=== PATIENT | female | born 1985 | race Caucasian/White ===

== ENCOUNTER 2019-03-28 13:44 | Observation (INO) | payer MEDICAID, SELFPAY ==
[2019-03-28 13:46] VITALS: BP 137/92; PULSE 98; RESP 16; TEMP 36; O2SAT 100; BMI 27.3
[2019-03-28] MEDS: proMETHazine 25 MG Tablet PO (14:33)
[2019-03-28] MEDS: cloNIDine HCl 0.2 MG Tablet PO (14:42)
[2019-03-28 14:43] LABS: Absolute Neutrophil Count 5.9 X10^3/uL (2.0-7.7); Basophil# 0.05 X10^3/uL; Basophil% 0.6 % (0-1); Eosinophil# 0.03 X10^3/uL; Eosinophils% 0.4 % (0-5); Hematocrit 48.9 % (37-47); Hemoglobin 16.2 g/dL (12.0-15.0); Lymphocyte % 24.3 % (19-41); Mean Corp Hgb Conc 33.1 g/dL (32-36); Mean Corpuscular Hgb 29.7 pg (27.0-32.0); Mean Corpuscular Volume 89.7 fL (81-99); Monocyte# 0.27 X10^3/uL; Monocyte% 3.3 % (0-10); NRBC Flagged by Analyzer 0 % (0-5); Neutrophil # 5.86 X10^3/uL (2.7-7.7); Neutrophil % 71.2 % (47-70); Platelet Count 299 K/mm3 (150-450); RBC Distribution Width SD 42.1 fl (35.1-43.9); Red Blood Count 5.45 M/mm3 (4.2-5.4); White Blood Count 8.2 K/mm3 (4.4-11.0)
[2019-03-28 14:52] LABS: Internal QC Validated? YES +Cl - CLEAR BKGD; Pregnancy, Serum, hCG Quali. NEGATIVE Negative
--- NOTE | 2019-03-28 14:53 | CM.ED ---
SOCIAL WORK INFORMANT: DR. MONTEJO REASON FOR REFERRAL: SUBSTANCE ABUSE MET WITH PATIENT AND PATIENT'S MOTHER IN ROOM. PATIENT GAVE PERMISSION FOR THIS WORKER TO SPEAK OPENLY WITH MOTHER PRESENT. INTRODUCED ROLE AND REASON FOR REFERRAL. PATIENT STATES RECENTLY MOVED HERE FROM [place]. PATIENT STATES IS HOMELESS MOTHER REFUSED TO ALLOW PATIENT TO LIVE WITH HER D/T SUBSTANCE ABUSE. PATIENT STATES LAST USE OF HEROIN WAS ABOUT 7-8 DAYS AGO. PATIENT STATES HAS BEEN OBTAINING GABAPENTIN AND SUBOXONE TO ASSIST WITH WITHDRAWAL. PATIENT HOPING TO BE ADMITTED FOR DETOX. PATIENT IS SELF PAY. DISCUSSED MEDICAID AND PATIENT STATES WAS ON MEDICAID BEFORE IN [place] AND IT WAS TRANSFERRED TO [place]. PATIENT PROVIDED WITH [place] BENEFITS CONTACT NUMBER TO REINSTATE MEDICAID. DISCUSSED COMMUNITY RESOURCES AND PATIENT WANTING REFERRAL TO [facility]. DISCUSSED PATIENT'S NEED TO COMPLETE INTAKE. INFORMED PATIENT THIS WORKER WILL CALL [facility] AND DISCUSS REFERRAL. DISCUSSED WITH DR. MONTEJO. HOSPITALIST TO BE PAGED TO DISCUSS ADMISSION. PLAN: GISSELLE LOPEZ, SPEECH CORRECTION ASSISTANT, VEHICLE COST ENGINEER.
[2019-03-28 14:59] LABS: Alcohol, Blood (Medical)-Serum < 3.0 mg/dL
[2019-03-28 15:00] LABS: Amphetamine Urine VISTA NEGATIVE (<1000 ng/mL); Barbiturate Urine VISTA NEGATIVE (< 200 ng/mL); Benzodiazepine Urine VISTA NEGATIVE (< 200 ng/mL); Cocaine Urine VISTA NEGATIVE (< 300 ng/mL); Ecstacy Urine VISTA NEGATIVE (< 500 ng/mL); Methadone Urine VISTA NEGATIVE (< 300 ng/mL); PCP Urine VISTA NEGATIVE (< 25 ng/mL); THC Urine VISTA NEGATIVE (< 50 ng/mL); Vista UDS pH Range 7
[2019-03-28 15:00] LABS: AST(SGOT) 8 U/L (15-37); Alanine Aminotransfer ALT/SGPT 19 U/L (13-56); Alkaline Phosphatase 83 U/L (45-117); Anion Gap 3 (5-15); BUN 8 mg/dL (7-18); BUN/Creat Ratio 9.8 RATIO (10-20); Calcium,Total 9.4 mg/dL (8.5-10.1); Chloride 109 mmol/L (98-107); Creatinine, Serum 0.82 mg/dL (0.55-1.02); EST Glomerular Filtration Rate 85 mL/min (>60); Est Glom Filt Rate - Afr Amer 103 mL/min (>60); Estimated Creatinine Clearance 72.26 ml/min; Globulin 4.2 g/dL (2.2-4.2); Glucose 96 mg/dL (74-106); Potassium 3.9 mmol/L (3.5-5.1); Protein, Total 8.2 g/dL (6.4-8.2); Sodium Level 141 mmol/L (136-145)
--- NOTE | 2019-03-28 15:11 | NURSING ---
MED SURG SUSANNA OPIATE WITHDRAWAL
--- NOTE | 2019-03-28 15:14 | ED.DCSUM_ITS ---
History of Present Illness Chief Complaint: Substance Abuse Narrative: Patient presenting requesting opiate detox. Patient reports that she is a frequent heroin user, was using upwards of $5000 worth of heroin per month. Patient was on a methadone program in [place] about 3 weeks ago that she failed. Patient states that in an attempt to get away from the people that she was using with as well as the places she knew where she could get heroin she flew to [place]. She does have family in [place], but she reports that her mom is not allowing her to stay with her. Patient states that her last opiate use was about 7 days ago, she has been intermittently using other things such as gabapentin or benzodiazepines, last use was 3 days ago but she is continuing to have withdrawal symptoms. Patient reports that she had a abscess on her right forearm that she drained herself that is still somewhat painful she denies constitutional symptoms such as fever. Review of systems otherwise negative. Past Medical History - Allergies and Home Meds Allergies/Adverse Reactions: Allergies No Known Allergies Allergy (Verified 03/28/19 13:46) Primary Care Physician: Care Physician,No Primary [Primary Care Provider] - Past Medical History: - - Heroin use Smoking Status: Current every day smoker Review of Systems General: Reports: Chills Eyes: Denies: Visual changes - bilaterally, Diplopia ENT: Denies: Rhinorrhea, Sore throat Cardiovascular: Denies: Chest pain, Palpitations Respiratory: Denies: Dyspnea, Cough, Dyspnea on exertion Gastrointestinal: Reports: Nausea Genitourinary: Denies: Dysuria, Hematuria, Frequency Musculoskeletal: Denies: Back pain, Extremity Pain Skin: Reports: Abscess Neurological: Denies: Headache, Weakness, Numbness Physical Exam Vital Signs/Narrative: Vital Signs Temp Pulse Resp BP Pulse Ox 03/28/19 13:46 96.8 F L 98 16 137/92 H 100 Inital Vital Signs reviewed: Yes General: Well nourished, Well developed Head: Normocephalic, Atraumatic Eyes: Perrl, EOMI ENT: Moist mucous membranes, No rhinorrhea Neck: Supple, Nontender Cardiovascular: Regular rate, Regular rhythm, No murmurs Respiratory: No distress, CTA bilaterally, Chest nontender Abdomen: Soft, Nontender, Nondistended, Normal bowel sounds Back: Nontender, Normal Inspection Extremities: Nontender, No Edema Skin: Normal color, - - Piloerection in the skin. Patient has a healing abscess on the right volar surface of her forearm. Neurological: Alert, Oriented x3, Cranial nerves II-XII grossly intact, Normal Strength, Normal Sensation Psych: Normal Speech Pattern Diagnostic/Tx/Re-eval Patient presented secondary to opiate withdrawal. Screening labs are negative. Patient's abscess on her forearm appears to be well-healing I do not feel that further intervention is indicated. Patient will be admitted for detox. ED Disposition - Plan for ED Patient: Disposition: Home or Assisted Living Diagnosis: Opiate dependence
--- NOTE | 2019-03-28 15:24 | PCM.HP.STD ---
Problem List (1) Benzodiazepine withdrawal with delirium Status: Acute (2) Opioid withdrawal delirium, acute, hyperactive Status: Acute (3) Nicotine dependence Status: Acute History of Present Illness Date of Admission: 03/28/19 Chief Complaint: Opioid and benzodiazepine withdrawal syndrome including tremors The patient is a 33 year old F with history of chronic opioid use and dependence, benzodiazepine dependence was on methadone program in [place]. Patient flew from [place] a week ago. She was on 120 mg methadone daily about 3 weeks ago. She started using heroin 2 and half gram after that, last use was about 7 days ago. She also uses gabapentin 600 mg, 5 tablet every 6 hours for last 4 days. Takes Xanax more than 12 mg, last use was about 3 days ago. Smokes cigarettes 1 pack/day started in teenage. History of seizure related to benzodiazepine withdrawal about 6 months ago. She claims it was partial seizure. Denies drinking alcohol. Patient is having tremors, nausea, vomiting, abdominal cramps and diarrhea. She is also having goosebumps, restlessness and anxiety. She denies history of suicidal attempt or ideation but has history of depression. Past Medical History Allergies No Known Allergies Allergy (Verified 03/28/19 13:46) Home Medications: Ambulatory Orders Medication Instructions Recorded Buprenorphine HCl/Naloxone HCl 1 ea SL DAILY 03/28/19 [Suboxone 12 mg-3 mg Sl Film] Smoking Status: Current every day smoker - 1 pack/day - *Family History Paternal History Items: No pertinent history Review of Systems Constitutional: Reports: Chills, Malaise, Weakness, Fatigue HEENT: Denies: Head Aches, Sinus Congestion, Sinus Drainage Cardiovascular: Denies: Chest Pain, Palpitations Respiratory: Denies: Cough, Shortness of breath at rest, Sputum production Gastrointestinal: Denies: Abdominal Pain, Nausea, Vomiting Genitourinary: Denies: Dysuria Musculoskeletal: Reports: Joint Pain, Leg Pain, Muscle pain, Neck Pain. Denies: Joint Tenderness Skin: Denies: Rash, Wounds Neurological: Reports: Confusion, Tremor. Denies: Focal weakness, Numbness, Tingling Psychiatric: Reports: Anxiety, Depression. Denies: Homicidal Ideations, Suicidal Ideations Hematologic/ Lymphatic: Denies: Easy Bruising, Easy Bleeding VTE Information - Inpt Only VTE Present on Admission: No VTE Mechan Device Prophylaxis: None VTE Pharm Prophylaxis ordered?: Yes Patient Problems: Active and Suspected Problems Opiate dependence (Acute) Benzodiazepine withdrawal with delirium (Acute) Opioid withdrawal delirium, acute, hyperactive (Acute) Nicotine dependence (Acute) - Physical Exam Vitals/I&O's: Vital Signs Temp Pulse Resp BP Pulse Ox 96.8 F L 98 16 137/92 H 100 03/28/19 13:46 03/28/19 13:46 03/28/19 13:46 03/28/19 13:46 03/28/19 13:46 Oxygen Delivery Method Room Air Weight: 145 lb Body Mass Index (BMI) 27.3 General: Alert, Oriented x3, Cooperative HEENT: Atraumatic, PERRLA, EOMI, Normocephalic Oral: Dry Mucosa Neck: Supple, No JVD, Negative Carotid Bruits Lungs: Clear to auscultation, Normal air movement, No rhonchi, No wheeze, No rales Cardiovascular: Regular rate, Regular Rhythm, Normal S1, Normal S2, No murmurs Abdomen: Bowel Sounds Present, Soft, Non Tender, Non-Distended Extremities: No edema, Capillary Refill Less than 3 Seconds Skin: No rashes, No breakdown, - - Needle babin on the upper arms, forearms and hands Musculoskeletal: No Tenderness to Palpation of Joints or Extremities Neurological: Cranial nerves II-XII grossly intact, Deep Tendon Reflexes 2+/4 and Symmetrical, Neuro grossly intact, Unsteady Gait, - - Tremors Psych/Mental Status: Anxious Laboratory Results 03/28/19 14:35: WBC 8.2, RBC 5.45 H, Hgb 16.2 H, Hct 48.9 H, MCV 89.7, MCH 29.7, MCHC 33.1, RDW Std Deviation 42.1, RDW Coeff of Chad 13.0, Plt Count 299, MPV 9.0, Immature Gran % (Auto) 0.200, Neut % (Auto) 71.2 H, Lymph % (Auto) 24.3, [place] % (Auto) 3.3, Eos % (Auto) 0.4, Baso % (Auto) 0.6, Absolute Neuts (auto) 5.9, Absolute Lymphs (auto) 2.00, Nucleated RBC % 0 03/28/19 14:35: Sodium 141, Potassium 3.9, Chloride 109 H, Carbon Dioxide 29.0, Anion Gap 3 L, BUN 8, Creatinine 0.82, Estim Creat Clear Calc 72.26, Est GFR (MDRD) Af Amer 103, Est GFR (MDRD) Non-Af 85, BUN/Creatinine Ratio 9.8 L, Glucose 96, Calcium 9.4, Total Bilirubin 0.30, AST 8 L, ALT 19, Alkaline Phosphatase 83, Total Protein 8.2, Albumin 4.0, Globulin 4.2, Albumin/Globulin Ratio 1.0 03/28/19 14:35: Ethyl Alcohol < 3.0 03/28/19 14:35: Serum , Qual NEGATIVE 03/28/19 14:45: Urine Opiates Screen NEGATIVE, Urine Methadone Screen NEGATIVE, Ur Barbiturates Screen NEGATIVE, Ur Phencyclidine Scrn NEGATIVE, Ur Amphetamines Screen NEGATIVE, U Methamphetamin-MDMA NEGATIVE, U Benzodiazepines Scrn NEGATIVE, Urine Cocaine Screen NEGATIVE, U Cannabinoids Screen NEGATIVE, Ur Drug Screen Comment Assessment/Plan All Active Problems Opiate dependence (Acute) Benzodiazepine withdrawal with delirium (Acute) Opioid withdrawal delirium, acute, hyperactive (Acute) Nicotine dependence (Acute) This 33-year-old female with history of chronic opioid and benzodiazepine use and dependence on methadone is being admitted for opioid and benzodiazepine withdrawal syndrome for medical stabilization. 1. Acute opioid withdrawal with history of benzodiazepine dependence: Patient is being admitted in MedSurg floor. Started on Librium scheduled and taper dose and buprenorphine. Patient is also on supportive medications including Tylenol, Motrin, methocarbamol, clonidine, folic acid and dicyclomine. 2. Acute benzodiazepine withdrawal: Patient is on Neurontin to control symptoms. Patient has history of benzodiazepine related seizure about 6 months ago. On Ativan 1 mg every 4 hourly as needed for seizure 3. Nicotine use and dependence: Patient history of cigarette smoking. On nicotine patch. 4. Anxiety, depression: Patient denies history of suicidal ideation or attempt. Bilateral SCDs. Code Visit Inpatient E&M: 10522 Init Hosp L3
--- NOTE | 2019-03-28 15:25 | CM.ED ---
SOCIAL WORK MET WITH PATIENT IN ROOM. HOSPITALIST JUST FINISHED WITH PATIENT. PLAN FOR ADMISSION. PATIENT RECEIVING MEDICAID NUMBER FROM [employer] WORKER UPON ENTERING ROOM. NUMBER GIVEN TO ED REGISTRATION. CALL TO [facility]. MESSAGE LEFT FOR MIKE REGARDING REFERRAL. AWAITING CALL BACK AT THIS TIME. PLAN: ADMIT Loree LOPEZ MSW, COMMERCIAL LOAN UNDERWRITER.
[2019-03-28 16:23] VITALS: BMI 25.6
[2019-03-28 16:27] LABS: Lipase 174 U/L (73-393)
[2019-03-28 16:54] LABS: Prothrombin Time (Protime)PT. 12.8 SECONDS (11.7-14.9)
[2019-03-28 16:55] VITALS: BP 102/71; PULSE 71; RESP 16; TEMP 35.8; O2SAT 98
[2019-03-28] MEDS: Thiamine Hydrochloride 100 MG Tablet PO (17:01)
[2019-03-28] MEDS: Methocarbamol 750 MG Tablet PO ×2 (17:01→23:41)
[2019-03-28] MEDS: Dicyclomine 10 MG Capsule 20 MG PO (17:01)
[2019-03-28] MEDS: cloNIDine HCl 0.1 MG Tablet PO ×2 (17:01→22:06)
[2019-03-28] MEDS: chlordiazePOXIDE 25 MG Capsule PO ×2 (17:02→22:09)
[2019-03-28] MEDS: Buprenorphine HCl 2 MG TAB.SUBL SL (17:07)
[2019-03-28 17:15] LABS: Bacteria 0 SEEN /hpf (None Seen); Mucous, Urine 0 SEEN /hpf (<or=2+); Red Blood Cells-Urine 0 SEEN /hpf (0-5)
[2019-03-28 17:37] LABS: Color, Urine Yellow (Yellow); Glucose, Dipstick Normal (Normal); Ketone-Dipstick Negative (Negative); Leukocyte Esterase-Dipstick 100 /ul (Negative); Nitrite-Dipstick Negative (Negative); Occult Blood-Urine Negative /ul (Negative); Protein-Dipstick Negative (Negative); Urine Bilirubin Dipstick Negative (Negative); Urine Clarity Clear (Clear); Urine Urobilinogen Normal (Normal)
[2019-03-28 17:56] LABS: Squamous Epithelial Cells - UA 0-5 SEEN /hpf (5-10); White Blood Cells 5-10 SEEN /hpf (0-5)
[2019-03-28] MEDS: hydrOXYzine PAM 25 MG Capsule 50 MG PO (22:06)
[2019-03-28] MEDS: traZODone 50 MG Tablet PO (22:06)
[2019-03-28] MEDS: Gabapentin 300 MG Capsule PO (22:08)
[2019-03-28 23:14] VITALS: BP 92/60; PULSE 81; RESP 18; TEMP 36.4; O2SAT 99
[2019-03-29] MEDS: Buprenorphine HCl 2 MG TAB.SUBL SL ×3 (01:08→18:15)
[2019-03-29] MEDS: cloNIDine HCl 0.1 MG Tablet PO (01:08)
[2019-03-29 05:14] VITALS: BP 83/57; PULSE 70; RESP 18; TEMP 36.1; O2SAT 100
[2019-03-29] MEDS: LORazepam 1 MG Tablet PO ×3 (05:37→20:45)
[2019-03-29] MEDS: Gabapentin 300 MG Capsule PO ×3 (05:37→21:38)
[2019-03-29] MEDS: chlordiazePOXIDE 25 MG Capsule PO ×3 (05:37→18:15)
--- NOTE | 2019-03-29 08:02 | PCM.PN.HOSP ---
Patient Problems: Active and Suspected Problems Opiate dependence (Acute) Benzodiazepine withdrawal with delirium (Acute) Opioid withdrawal delirium, acute, hyperactive (Acute) Nicotine dependence (Acute) Reason for Visit: Follow-up acute opioid and benzo withdrawal Subjective: Patient is a 33-year-old lady with history of chronic opiate and benzo use admitted with acute opioid withdrawal Objective: GENERAL: cooperative HEENT: Atraumatic; EYES; Anicteric, Normal Conjunctiva NECK; supple, normal thyroid, RESPIRATORY: Diminished to auscultation CARDIOVASCULAR: Regular S1 S2, GI: soft, normoactive bowel sounds, : No Renal angle tenderness; EXTREMITIES: No edema, no clubbing, MUSCULOSKELETAL: no muscle waisting NEURO: Awake; no lateralizing signs. SKIN: Area of induration measuring 1.5 cm on the right forearm PSYCH; Flat affect Vitals/I&O's: Vital Signs Temp Pulse Resp BP Pulse Ox 97.0 F L 70 18 83/57 L 100 03/29/19 05:14 03/29/19 05:14 03/29/19 05:14 03/29/19 05:14 03/29/19 05:14 Oxygen Delivery Method Room Air Weight: 61.5 kg Body Mass Index (BMI) 25.6 Intake and Output for Last 24 Hours 03/27/19 03/28/19 03/29/19 23:59 23:59 23:59 Intake Total 1899 Balance 1899 Laboratory Results 03/28/19 14:35: WBC 8.2, RBC 5.45 H, Hgb 16.2 H, Hct 48.9 H, MCV 89.7, MCH 29.7, MCHC 33.1, RDW Std Deviation 42.1, RDW Coeff of Chad 13.0, Plt Count 299, MPV 9.0, Immature Gran % (Auto) 0.200, Neut % (Auto) 71.2 H, Lymph % (Auto) 24.3, [place] % (Auto) 3.3, Eos % (Auto) 0.4, Baso % (Auto) 0.6, Absolute Neuts (auto) 5.9, Absolute Lymphs (auto) 2.00, Nucleated RBC % 0 03/28/19 14:35: Sodium 141, Potassium 3.9, Chloride 109 H, Carbon Dioxide 29.0, Anion Gap 3 L, BUN 8, Creatinine 0.82, Estim Creat Clear Calc 72.26, Est GFR (MDRD) Af Amer 103, Est GFR (MDRD) Non-Af 85, BUN/Creatinine Ratio 9.8 L, Glucose 96, Calcium 9.4, Total Bilirubin 0.30, AST 8 L, ALT 19, Alkaline Phosphatase 83, Total Protein 8.2, Albumin 4.0, Globulin 4.2, Albumin/Globulin Ratio 1.0 03/28/19 14:35: Ethyl Alcohol < 3.0 03/28/19 14:35: Serum , Qual NEGATIVE 03/28/19 14:35: Lipase 174 03/28/19 14:45: Urine Opiates Screen NEGATIVE, Urine Methadone Screen NEGATIVE, Ur Barbiturates Screen NEGATIVE, Ur Phencyclidine Scrn NEGATIVE, Ur Amphetamines Screen NEGATIVE, U Methamphetamin-MDMA NEGATIVE, U Benzodiazepines Scrn NEGATIVE, Urine Cocaine Screen NEGATIVE, U Cannabinoids Screen NEGATIVE, Ur Drug Screen Comment 03/28/19 14:45: Urine Color Yellow, Urine Clarity Clear, Urine pH 7.0, Ur Specific [place] 1.010, Urine Protein Negative, Urine Glucose (UA) Normal, Urine Ketones Negative, Urine Occult Blood Negative, Urine Nitrite Negative, Urine Bilirubin Negative, Urine Urobilinogen Normal, Ur Leukocyte Esterase 100 H, Urine RBC 0 SEEN, Urine WBC 5-10 SEEN, Ur Squamous Epith Cells 0-5 SEEN, Urine Bacteria 0 SEEN, Urine Mucus 0 SEEN 03/28/19 16:36: PT 12.8, INR 1.0 Current Medications Acetaminophen (Tylenol) 500 mg PO Q4H PRN PRN PRN Reason: Temp > 100.4 F Al Hydroxide/Mg Hydroxide (Mylanta Ii) 30 ml PO Q6H PRN PRN PRN Reason: dyspesia Bisacodyl (Dulcolax) 10 mg RECTAL DAILY PRN PRN Reason: Constipation Buprenorphine HCl (Buprenorphine Hcl) 4 mg SL Q8H SANTOS; Taper Stop: 03/31/19 20:59 Last Admin: 03/29/19 01:08 Dose: 4 mg Documented by: Chlordiazepoxide (Librium) 50 mg PO Q6H SANTOS; Taper Stop: 03/31/19 18:59 Last Admin: 03/29/19 05:37 Dose: 50 mg Documented by: Clonidine (Catapres) 0.1 mg PO Q2H PRN PRN PRN Reason: hot/cold sweats / gen. anxiety Last Admin: 03/29/19 01:08 Dose: 0.1 mg Documented by: Dicyclomine HCl (Bentyl) 20 mg PO Q6H PRN PRN PRN Reason: Abdominal Discomfort Last Admin: 03/28/19 17:01 Dose: 20 mg Documented by: Folic Acid (Folic Acid) [facility] Stop: 03/31/19 08:01 Gabapentin (Neurontin) 300 mg PO Q8 [facility] Last Admin: 03/29/19 05:37 Dose: 300 mg Documented by: Hydroxyzine Pamoate (Vistaril Pamoate Capsule) 50 mg PO Q6H PRN PRN PRN Reason: Mild anxiety (1-4) Last Admin: 03/28/19 22:06 Dose: 50 mg Documented by: Ibuprofen (Motrin) 600 mg PO Q8H PRN PRN PRN Reason: Pain Score 1-5/10 Loperamide HCl (Imodium) 2 - 4 mg PO UD PRN PRN Reason: LOOSE STOOLS Lorazepam (Ativan) 1 mg PO Q4H PRN PRN PRN Reason: ANXIETY Last Admin: 03/29/19 05:37 Dose: 1 mg Documented by: Methocarbamol (Methocarbamol) 750 mg PO Q6H PRN PRN PRN Reason: Muscle Aches Last Admin: 03/28/19 23:41 Dose: 750 mg Documented by: Multivitamins (Multivitamin) 1 tablet [facility] Nicotine (Nicoderm Cq (Pbkc)) 21 mg TRANSDERM. DAILY [facility] Last Admin: 03/28/19 17:01 Dose: 21 mg Documented by: Ondansetron HCl (Zofran Odt) 4 mg PO Q6H PRN PRN PRN Reason: NAUSEA Senna (Senokot) 1 tablet PO QHS PRN PRN PRN Reason: Constipation Thiamine HCl (Vitamin B1) 100 [facility] Stop: 03/30/19 08:01 Last Admin: 03/28/19 17:01 Dose: 100 mg Documented by: Trazodone HCl (Desyrel) 50 mg PO QHS [facility] Last Admin: 03/28/19 22:06 Dose: 50 mg Documented by: STROKE Vital Signs/Narrative: Vital Signs Temp Pulse Resp BP Pulse Ox 03/29/19 05:14 97.0 F L 70 18 83/57 L 100 Medical Necessity - Tobacco Use Smoking Status: Current every day smoker Tobacco Use: Cigarettes Assessment/Plan All Active Problems Opiate dependence (Acute) Benzodiazepine withdrawal with delirium (Acute) Opioid withdrawal delirium, acute, hyperactive (Acute) Nicotine dependence (Acute) Patient is a 33-year-old lady with history of chronic opiate and benzo use admitted with acute opioid withdrawal 1. Acute opiate withdrawal ?Admitted to regular nursing floor patient currently being managed with Subutex in addition to Librium 2. Benzo dependence with withdrawal Admitted to regular nursing floor patient is being managed with Librium in addition to Neurontin. Plan is for patient to follow-up as outpatient with PCP for long-term taper 3. Tobacco dependence - counseled on cessation, offered nicotine patch for tobacco cravings 4. Depression with anxiety ?Patient denies any suicidal ideation at this point 5. DVT prophylaxis ?Low risk did encourage early ambulation Code Visit Inpatient E&M: 36806 Subs Hosp L2
[2019-03-29 08:15] VITALS: BP 87/55; PULSE 78; RESP 18; TEMP 36.5; O2SAT 99
[2019-03-29] MEDS: Thiamine Hydrochloride 100 MG Tablet PO (08:19)
[2019-03-29] MEDS: Folic Acid 1 MG Tablet PO (08:19)
[2019-03-29] MEDS: Multivitamins,Therapeutic Tablet 1 TABLET PO (08:28)
[2019-03-29] MEDS: hydrOXYzine PAM 25 MG Capsule 50 MG PO (08:35)
[2019-03-29 10:15] VITALS: BP 92/62; PULSE 79; RESP 18; TEMP 36.6; O2SAT 99
--- NOTE | 2019-03-29 10:36 | CASEMGMT ---
SOCIAL WORK CALL FROM MIKE WITH [facility]. PER MIKE, IS WORKING ON HAVING A COUNSELOR COME TO HOSPITAL TO COMPLETE INTAKE FOR RESIDENTIAL TREATMENT PRIOR TO DISCHARGE. MIKE TO UPDATE THIS WORKER. WILL CONTINUE TO FOLLOW. Loree LOPEZ MSW, REMOTE COMPUTER TERMINAL OPERATOR.
[2019-03-29] MEDS: Methocarbamol 750 MG Tablet PO ×2 (11:34→20:45)
[2019-03-29] MEDS: Ondansetron ODT 4 MG Tablet PO (11:37)
--- NOTE | 2019-03-29 14:46 | CHAPLAIN ---
Type of Pastoral Visit _x__ Initial Visit ___ Follow-up Visit ___ On-call Visit ___ General Patient Visit ___ Spiritual Assessment ___ Family Conference ___ Bereavement ___ Rapid Response ___ Code Blue ___ Other (describe below) Pastoral Care Referral From _x__ Patient ___ Family _x__ Nurse ___ Physician ___ Eligibility Counselor ___ Senior Research Manager ___ Other (describe below) Sacrament/Intervention _x__ Active listening ___ Anointing ___ Jewish ___ Bereavement ___ Communion _x__ Kayley exploration ___ _x__ Life review _x__ Prayer ___ Reconciliation ___ Sacrament of Sick _x__ Supportive presence ___ Wedding ___ Other (describe below) Pastoral Comments patient is very talkative and presents with attitude of getting help and living life WELL; pt says she has to do this for herself; pt asks for help to get into [facility]; pt asks for a Bible and any help for development of her kayley; pt says she is Rastafari by background but has been exploring Jewish for the last year and wants to have kayley based help; pt said she has been reading the Bible and welcomes prayer; pt asks this medical reimbursement manager for additional visits while she is in the hospital
--- NOTE | 2019-03-29 16:12 | CASEMGMT ---
Social Work Note SW reviewed notes and it appears [facility] is trying to get a counselor to come see pt while pt is at [facility]. SW in to speak with pt. SW introduced self and role at [facility]. Pt is alert and orientated x3. SW updated pt that per ED SW note, the plan is for counselor to come see pt while at [facility] to get linked up with services through [facility]. Pt states understanding, denied additional needs or concerns at this time. Diane Wagoner CROP RANCH HAND, GLUCOSE AND SYRUP WEIGHER
[2019-03-29] MEDS: Senna Tablet 1 TABLET PO (16:13)
[2019-03-29 16:15] VITALS: BP 92/58; PULSE 80; RESP 16; TEMP 36.4; O2SAT 99
[2019-03-29 20:28] VITALS: BP 90/55; PULSE 92; RESP 16; TEMP 36.4; O2SAT 100
[2019-03-29] MEDS: traZODone 50 MG Tablet PO (21:38)
[2019-03-30 00:45] VITALS: BP 90/55; PULSE 94; RESP 16; TEMP 36.5; O2SAT 100
[2019-03-30] MEDS: Buprenorphine HCl 2 MG TAB.SUBL SL ×3 (00:49→21:42)
[2019-03-30] MEDS: LORazepam 1 MG Tablet PO ×6 (00:53→23:39)
[2019-03-30] MEDS: chlordiazePOXIDE 25 MG Capsule PO ×3 (03:58→18:04)
[2019-03-30] MEDS: Methocarbamol 750 MG Tablet PO ×3 (05:56→21:45)
[2019-03-30] MEDS: Gabapentin 300 MG Capsule PO ×3 (05:56→21:42)
--- NOTE | 2019-03-30 07:10 | PCM.PN.HOSP ---
Patient Problems: Active and Suspected Problems Opiate dependence (Acute) Benzodiazepine withdrawal with delirium (Acute) Opioid withdrawal delirium, acute, hyperactive (Acute) Nicotine dependence (Acute) Reason for Visit: Follow-up acute opioid and benzo withdrawal Subjective: Patient seen still remains significantly restless. She did express a desire to go to an inpatient rehab needs once she is discharged we will consult case management to assist with disposition Objective: GENERAL: cooperative HEENT: Atraumatic; EYES; Anicteric, Normal Conjunctiva NECK; supple, normal thyroid, RESPIRATORY: Diminished to auscultation CARDIOVASCULAR: Regular S1 S2, GI: soft, normoactive bowel sounds, : No Renal angle tenderness; EXTREMITIES: No edema, no clubbing, MUSCULOSKELETAL: no muscle waisting NEURO: Awake; no lateralizing signs. SKIN: Area of induration measuring 1.5 cm on the right forearm PSYCH; Flat affect Vitals/I&O's: Vital Signs Temp Pulse Resp BP Pulse Ox 97.7 F L 94 16 90/55 L 100 03/30/19 00:45 03/30/19 00:45 03/30/19 00:45 03/30/19 00:45 03/30/19 00:45 Oxygen Delivery Method Room Air Weight: 61.5 kg Body Mass Index (BMI) 25.6 Intake and Output for Last 24 Hours 03/28/19 03/29/19 03/30/19 23:59 23:59 23:59 Intake Total 1900 / 1900 1100 / 1100 Balance 1900 / 1900 1100 / 1100 Current Medications Acetaminophen (Tylenol) 500 mg PO Q4H PRN PRN PRN Reason: Temp > 100.4 F Al Hydroxide/Mg Hydroxide (Mylanta Ii) 30 ml PO Q6H PRN PRN PRN Reason: dyspesia Bisacodyl (Dulcolax) 10 mg RECTAL DAILY PRN PRN Reason: Constipation Buprenorphine HCl (Buprenorphine Hcl) 2 mg SL Q8H SATNOS; Taper Stop: 03/31/19 20:59 Last Admin: 03/30/19 00:49 Dose: 2 mg Documented by: Chlordiazepoxide (Librium) 50 mg PO Q8H SANTOS; Taper Stop: 03/31/19 18:59 Last Admin: 03/30/19 03:58 Dose: 50 mg Documented by: Clonidine (Catapres) 0.1 mg PO Q2H PRN PRN PRN Reason: hot/cold sweats / gen. anxiety Last Admin: 03/29/19 01:08 Dose: 0.1 mg Documented by: Dicyclomine HCl (Bentyl) 20 mg PO Q6H PRN PRN PRN Reason: Abdominal Discomfort Last Admin: 03/28/19 17:01 Dose: 20 mg Documented by: Folic Acid ([facility]olic Acid) [facility] Stop: 03/31/19 08:01 Last Admin: 03/29/19 08:19 Dose: 1 mg Documented by: Gabapentin (Neurontin) 300 mg PO Q8 [facility]S [facility]CLUDE [facility] BEDS AT THE [facility] Last Admin: 03/30/19 05:56 Dose: 300 mg Documented by: Hydroxyzine Pamoate (Vistaril Pamoate Capsule) 50 mg PO Q6H PRN PRN PRN Reason: Mild anxiety (1-4) Last Admin: 03/29/19 08:35 Dose: 50 mg Documented by: Ibuprofen (Motrin) 600 mg PO Q8H PRN PRN PRN Reason: Pain Score 1-5/10 Loperamide HCl (Imodium) 2 - 4 mg PO UD PRN PRN Reason: LOOSE STOOLS Lorazepam (Ativan) 1 mg PO Q4H PRN PRN PRN Reason: ANXIETY Last Admin: 03/30/19 05:56 Dose: 1 mg Documented by: Methocarbamol (Methocarbamol) 750 mg PO Q6H PRN PRN PRN Reason: Muscle Aches Last Admin: 03/30/19 05:56 Dose: 750 mg Documented by: Multivitamins (Multivitamin) [facility] Last Admin: 03/29/19 08:28 Dose: 1 tablet Documented by: Nicotine (Nicoderm Cq (Pbkc)) 21 mg TRANSDERM. DAILY COUNTS [facility]CLUDE 234 BEDS AT THE [facility] Last Admin: 03/29/19 08:20 Dose: 21 mg Documented by: Ondansetron HCl (Zofran Odt) 4 mg PO Q6H PRN PRN PRN Reason: NAUSEA Last Admin: 03/29/19 11:37 Dose: 4 mg Documented by: Senna (Senokot) 1 tablet PO QHS PRN PRN PRN Reason: Constipation Last Admin: 03/29/19 16:13 Dose: 1 tablet Documented by: Thiamine HCl (Vitamin B1) [facility] Stop: 03/30/19 08:01 Last Admin: 03/29/19 08:19 Dose: 100 mg Documented by: Trazodone HCl (Desyrel) 50 mg PO QHS COUNTS INCLUDE 234 BEDS AT THE [facility] Last Admin: 03/29/19 21:38 Dose: 50 mg Documented by: Medical Necessity - Tobacco Use Smoking Status: Current every day smoker Tobacco Use: Cigarettes Assessment/Plan All Active Problems Opiate dependence (Acute) Benzodiazepine withdrawal with delirium (Acute) Opioid withdrawal delirium, acute, hyperactive (Acute) Nicotine dependence (Acute) Patient is a 33-year-old lady with history of chronic opiate and benzo use admitted with acute opioid withdrawal 1. Acute opiate withdrawal ?Admitted to regular nursing floor patient currently being managed with Subutex in addition to Librium -03/30/2019; Patient seen still remains significantly restless. She did express a desire to go to an inpatient rehab needs once she is discharged, consulted case management to assist with disposition 2. Benzo dependence with withdrawal Admitted to regular nursing floor patient is being managed with Librium in addition to Neurontin. Plan is for patient to follow-up as outpatient with PCP for long-term taper 3. Tobacco dependence - counseled on cessation, offered nicotine patch for tobacco cravings 4. Depression with anxiety ?Patient denies any suicidal ideation at this point 5. DVT prophylaxis ?Low risk did encourage early ambulation Code Visit Inpatient E&M: 46230 Subs Hosp L2
[2019-03-30 07:30] VITALS: BP 92/57; PULSE 90; RESP 18; TEMP 36.8; O2SAT 99
[2019-03-30] MEDS: cloNIDine HCl 0.1 MG Tablet PO ×3 (07:44→18:04)
[2019-03-30] MEDS: Ibuprofen 600 MG Tablet PO ×2 (07:44→18:05)
[2019-03-30] MEDS: Thiamine Hydrochloride 100 MG Tablet PO (09:21)
[2019-03-30] MEDS: Folic Acid 1 MG Tablet PO (09:22)
[2019-03-30] MEDS: Multivitamins,Therapeutic Tablet 1 TABLET PO (09:22)
--- NOTE | 2019-03-30 09:43 | CASEMGMT ---
Addendum entered by Diane Wagoner 03/30/19 13:41: SW received call from Haylee at [facility] stating she was updated by counselor that did pt's assessment today that pt didn't want to come to [facility] unless she could continue her Suboxone treatment. Haylee states pt has to be at [facility] for 30 days and then will be evaluated for Suboxone. SW in to speak with pt. Pt confirms she spoke with [facility] today. SW educated pt on pros of being in residential treatment. Pt agreeable to going to [facility] at discharge for residential. Pt signed release of information. SW faxed updated clinicals to [facility]. Plan: [facility] for residential at discharge Original Note: Social Work Note Per physician, pt is likely discharging tomorrow. DAVID placed a call to Laura at [facility] and updated her on this. Laura states she believes Shani, pt's counselor through [facility], is going to come today to [facility] to complete assessment. Laura states she will check with Shani and then give this worker a call back. Diane Wagoner [employer], REFUELER
[2019-03-30 14:00] VITALS: BP 92/55; PULSE 18; RESP 18; TEMP 36.7; O2SAT 99
[2019-03-30] MEDS: Dicyclomine 10 MG Capsule 20 MG PO (15:12)
[2019-03-30] MEDS: Ondansetron ODT 4 MG Tablet PO ×2 (15:13→21:45)
--- NOTE | 2019-03-30 16:27 | CASEMGMT ---
Social Work Note Pt requesting to speak to this worker. Pt's mom present in room. Pt gave this worker permission to speak to her in front of her guest. Pt asked this worker to explain [facility] program again to her mother. SW explained [facility] program to pt's mother. Pt's mother asked about visitation at [facility]. SW informed pt and pt's mother that this worker doesn't know all of the rules and guidelines at [facility] so once pt gets there they should ask them about their rules. Pt again states she would like to go to [facility] at discharge and states that her mother will be able to transport her. Plan: [facility] once medically cleared Diane Wagoner VENDING MACHINE MECHANIC, SEPARATING MACHINE OPERATOR
[2019-03-30 18:00] VITALS: BP 94/55; PULSE 125; RESP 18; TEMP 37.1; O2SAT 99
[2019-03-30] MEDS: hydrOXYzine PAM 25 MG Capsule 50 MG PO (18:05)
[2019-03-30 21:34] VITALS: BP 90/57; PULSE 84; RESP 18; TEMP 37.4; O2SAT 100
[2019-03-30] MEDS: traZODone 50 MG Tablet PO (21:42)
[2019-03-31 03:53] VITALS: BP 90/54; PULSE 77; RESP 18; TEMP 36.9; O2SAT 99
[2019-03-31] MEDS: LORazepam 1 MG Tablet PO (04:02)
[2019-03-31] MEDS: Methocarbamol 750 MG Tablet PO (04:02)
[2019-03-31] MEDS: Gabapentin 300 MG Capsule PO (06:40)
[2019-03-31] MEDS: chlordiazePOXIDE 25 MG Capsule PO (06:40)
[2019-03-31 08:48] VITALS: BP 85/51; PULSE 82; RESP 18; TEMP 36.9; O2SAT 97
--- NOTE | 2019-03-31 08:49 | DCINST_ITS ---
- Discharge Diagnoses Current Active Problems: Current Active and Chronic Problems Opiate dependence (Acute) Benzodiazepine withdrawal with delirium (Acute) Opioid withdrawal delirium, acute, hyperactive (Acute) Nicotine dependence (Acute) You will use the following diet at home:: Regular Your food should be the consistency of: Regular Discharge Activity: May Not Drive Call your doctor if you observe: Fever of 101 or Higher, Coldness, Increased Pain, Numbness or Tingling, Change in Color, Inability to urinate, Inability to have a bowel movement, Using more than one pad per hour, Shortness of breath, Dizziness, Fainting spells, Chest pain, Increased palpitations (irregular heartbeat), Calf discomfort, Uncontrolled pain Additional Instructions: F/U 180 Allergies/Adverse Reactions: Allergies No Known Allergies Allergy (Verified 03/28/19 13:46) Medications to take at Discharge Buprenorphine HCl/Naloxone HCl [Suboxone 12 mg-3 mg Sl Film] 1 ea SL DAILY 0 03/28/19 Primary Care Physician: Care Physician,No Primary [Primary Care Provider] - Please follow up with your Primary Care Physician in: IN 1-2 WEEK Test Results: Test results from this visit will be discussed in further detail at your follow- up appointment, if applicable.
--- NOTE | 2019-03-31 08:50 | PCM.DC.SUM ---
Discharge Date and Diagnosis Date of Admission: 03/28/19 Date of Discharge: 03/31/19 - Primary Discharge Diagnosis Active and Suspected Problems Opiate dependence (Acute) Benzodiazepine withdrawal with delirium (Acute) Opioid withdrawal delirium, acute, hyperactive (Acute) Nicotine dependence (Acute) Hospital Course and Treatment Summary of Care Provided: [] Patient is a 33-year-old lady with history of chronic opiate and benzo use admitted with acute opioid withdrawal 1. Acute opiate withdrawal with history of chronic heroin/opioid use and dependence ?Admitted to regular nursing floor patient currently being managed with Subutex in addition to Librium -03/30/2019; Patient seen still remains significantly restless. She did express a desire to go to an inpatient rehab needs once she is discharged, consulted case management to assist with disposition 03/31 2019: Patient symptoms overall improved. Patient is discharged to 180 continue the Suboxone. Prescription for Suboxone was not given. 2. Benzo dependence with withdrawal Admitted to regular nursing floor patient is being managed with Librium in addition to Neurontin. Plan is for patient to follow-up as outpatient with PCP for long-term taper Patient tremors are well controlled. Continue Neurontin. 3. Tobacco dependence - counseled on cessation, offered nicotine patch for tobacco cravings 4. Depression with anxiety ?Patient denies any suicidal ideation at this point 5. DVT prophylaxis ?Low risk did encourage early ambulation Discharge medication reconciliation done. Discharge follow-up instructions completed. Discharge process discussed with the patient and all questions were answered to patient's satisfaction. Discharged home. Patient is going to inpatient rehab 180. Total time spent, exact 35 minutes on discharge meds reconciliation, examination, coordination of care with nurses and ancillary staff, review of imaging and blood test and discussion with the patient on follow-up instructions Subjective: Patient overall feels better. Still has anxiety and restlessness. Patient was on Suboxone on the past and she wants to continue to avoid craving for heroin/opioids. - Physical Exam Vitals/I&O's: Vital Signs Temp Pulse Resp BP Pulse Ox 98.5 F 77 18 90/54 L 99 03/31/19 03:53 03/31/19 03:53 03/31/19 03:53 03/31/19 03:53 03/31/19 03:53 Oxygen Delivery Method Room Air Weight: 135 lb 9.349 oz Body Mass Index (BMI) 25.6 Intake and Output for Last 24 Hours 03/29/19 03/30/19 03/31/19 23:59 23:59 23:59 Intake Total 1899 3180 / 3180 300 / 300 Balance 1899 3180 / 3180 300 / 300 General: Alert, Oriented x3, Cooperative HEENT: Atraumatic, PERRLA, EOMI, Normocephalic Neck: Supple, No JVD, Negative Carotid Bruits Lungs: Clear to auscultation, Normal air movement Cardiovascular: Regular rate, Regular Rhythm, Normal S1, Normal S2, No murmurs Abdomen: Bowel Sounds Present, Soft, Non Tender, Non-Distended Extremities: No edema, Capillary Refill Less than 3 Seconds, - - Needle scar luisa over bilateral forearms and arm. Skin: No rashes, No breakdown Musculoskeletal: No Tenderness to Palpation of Joints or Extremities Neurological: Cranial nerves II-XII grossly intact Psych/Mental Status: Normal Affect, Appropriate Current Medications Acetaminophen (Tylenol) 500 mg PO Q4H PRN PRN PRN Reason: Temp > 100.4 F Al Hydroxide/Mg Hydroxide (Mylanta Ii) 30 ml PO Q6H PRN PRN PRN Reason: dyspesia Bisacodyl (Dulcolax) 10 mg RECTAL DAILY PRN PRN Reason: Constipation Buprenorphine HCl (Buprenorphine Hcl) 2 mg SL Q12H SANTOS; Taper Stop: 03/31/19 20:59 Last Admin: 03/30/19 21:42 Dose: 2 mg Documented by: Chlordiazepoxide (Librium) 25 mg PO Q12H SANTOS; Taper Stop: 03/31/19 18:59 Last Admin: 03/31/19 06:40 Dose: 25 mg Documented by: Clonidine (Catapres) 0.1 mg PO Q2H PRN PRN PRN Reason: hot/cold sweats / gen. anxiety Last Admin: 03/30/19 18:04 Dose: 0.1 mg Documented by: Dicyclomine HCl (Bentyl) 20 mg PO Q6H PRN PRN PRN Reason: Abdominal Discomfort Last Admin: 03/30/19 15:12 Dose: 20 mg Documented by: Gabapentin (Neurontin) 300 mg PO Q8 SANTOS Last Admin: 03/31/19 06:40 Dose: 300 mg Documented by: Hydroxyzine Pamoate (Vistaril Pamoate Capsule) 50 mg PO Q6H PRN PRN PRN Reason: Mild anxiety (1-4) Last Admin: 03/30/19 18:05 Dose: 50 mg Documented by: Ibuprofen (Motrin) 600 mg PO Q8H PRN PRN PRN Reason: Pain Score 1-5/10 Last Admin: 03/30/19 18:05 Dose: 600 mg Documented by: Loperamide HCl (Imodium) 2 - 4 mg PO UD PRN PRN Reason: LOOSE STOOLS Lorazepam (Ativan) 1 mg PO Q4H PRN PRN PRN Reason: ANXIETY Last Admin: 03/31/19 04:02 Dose: 1 mg Documented by: Methocarbamol (Methocarbamol) 750 mg PO Q6H PRN PRN PRN Reason: Muscle Aches Last Admin: 03/31/19 04:02 Dose: 750 mg Documented by: Multivit[facility] ([facility]ivitamin) [facility] Last Admin: 03/30/19 09:22 Dose: 1 tablet Documented by: Nicotine (Nicoderm Cq (Pbkc)) 21 mg TRANSDERM. DAILY [facility] Last Admin: 03/30/19 09:23 Dose: 21 mg Documented by: Ondansetron HCl (Zofran Odt) 4 mg PO Q6H PRN PRN PRN Reason: NAUSEA Last Admin: 03/30/19 21:45 Dose: 4 mg Documented by: Senna (Senokot) 1 tablet PO QHS PRN PRN PRN Reason: Constipation Last Admin: 03/29/19 16:13 Dose: 1 tablet Documented by: [facility]) [facility] Last Admin: 03/30/19 21:42 Dose: 50 mg Documented by: Discharge Activity: May Not Drive Call your doctor if you observe: Fever of 101 or Higher, Coldness, Increased Pain, Numbness or Tingling, Change in Color, Inability to urinate, Inability to have a bowel movement, Using more than one pad per hour, Shortness of breath, Dizziness, Fainting spells, Chest pain, Increased palpitations (irregular heartbeat), Calf discomfort, Uncontrolled pain Home Medications: Medications to take at Discharge Buprenorphine HCl/Naloxone HCl [Suboxone 12 mg-3 mg Sl Film] 1 ea SL DAILY 03/28/19 Primary Care Physician: Care Physician,No Primary [Primary Care Provider] - Please follow up with your Primary Care Physician in: IN 1-2 WEEK Medical Necessity - Tobacco Use Smoking Status: Current every day smoker Tobacco Use: Cigarettes Meaningful Use Info Meaningful Use Diagnoses (Choose all that apply): None applicable Code Visit Inpatient E&M: 88125 Disch Hosp
--- NOTE | 2019-03-31 09:06 | CASEMGMT ---
Addendum entered by Diane Wagoner 03/31/19 10:32: Pt, pt's mother and pt's aunt requesting to speak to this worker. Pt states that she is still thinking about not being on Suboxone at discharge and she is concerned that she will start to have cravings and want to leave and use again. Pt's aunt states that she's a RN who has worked before with [facility] and pt will get evaluated by physician to determine if pt needs Suboxone or not as soon as pt gets to [facility]. SW informed pt and pt's family that the counselor who completed pt's assessment was the individual who told this worker about the Suboxone protocols at [facility]. SW informed pt again that this worker is not sure about all of [facility]'s rules and guidelines for residential but again encouraged pt to ask those questions once she arrives at [facility]. Pt states understanding, denied additional needs or concerns at this time. Original Note: Social Work Note Discharge is in for pt. DAVID placed a call to Haylee at [facility] and updated her on discharge and that pt's mother will transport pt. Per RN pt is currently on phone with mother to arrange transportation. Plan: [facility] Diane Wagoner WATER MANAGER, STOCK TRANSFER CLERK
[2019-03-31] MEDS: Multivitamins,Therapeutic Tablet 1 TABLET PO (09:44)
[2019-03-31] MEDS: Buprenorphine HCl 2 MG TAB.SUBL SL (09:44)
[2019-03-31] MEDS: Folic Acid 1 MG Tablet PO (09:46)
[2019-03-31 09:47] VITALS: BP 100/62; PULSE 79
== END 2019-03-31 10:47 | disposition home or self-care (01) | DRG 773 ==
LOC: ED 14:21 → MS3 15:21
PROVIDERS: Admitting Provider Internal Medicine; Emergency Provider Emergency Medicine; Visit Provider Internal Medicine
DX: F11.23 Opioid dependence with withdrawal (principal); F13.239 Sedative, hypnotic or anxiolytic dependence with withdrawal, unspecified; F17.210 Nicotine dependence, cigarettes, uncomplicated
CPT/HCPCS: 36415; 80053; 80307; 80320; 81001; 83690; 84703; 85025; 85610; 97802; 99218; 99285; 99406; G0378; G0480